=== PATIENT | female | born 1950 | race Caucasian/White ===

== ENCOUNTER → 2021-09-20 | Outpatient (CLI) | payer MEDICARE, BC | LOC: COL.RAD 12:17 | DX: M22.41 Chondromalacia patellae, right knee (principal); S83.241A Other tear of medial meniscus, current injury, right knee, initial encounter | CPT/HCPCS: Q9967 ==

== ENCOUNTER 2024-06-20 12:34 | Emergency (ER) | payer MEDICARE, BC ==
[~2024-06-20] VITALS: Ht 160 cm; Wt 54.5 kg
[2024-06-20 12:42] VITALS: TEMP 98.1
[2024-06-20 14:59] VITALS: BP 135/86; PULSE 67
== END 2024-06-20 15:00 | disposition home or self-care (01) ==
LOC: COL.ER 12:34
DX: S09.90XA Unspecified injury of head, initial encounter (principal); W18.30XA Fall on same level, unspecified, initial encounter; W22.8XXA Striking against or struck by other objects, initial encounter; Y92.002 Bathroom of unspecified non-institutional (private) residence as the place of occurrence of the external cause